=== PATIENT | female | born 1970 | race Caucasian/White ===

== ENCOUNTER 2020-09-11 19:44 | Emergency (ER) | payer MEDICARE, MEDICAID ==
[~2020-09-11] VITALS: Ht 162.6 cm; Wt 68.5 kg
[2020-09-11 19:50] VITALS: BP 141/88
[2020-09-11] MEDS ORDERED: LORazepam 2MG/ML-1ML VIAL IV ONE (20:15)
[2020-09-11 20:59] LABS: Basophils # (auto) 0.1 10 ^3/uL (0-0.2); Basophils % (auto) 0.7 % (0.0-2.0); Eosinophils # (auto) 0.1 10 ^3/uL (0-0.8); Hematocrit 40.2 % (36.0-46.0); Hemoglobin 13.7 g/dL (12.2-16.2); Lymphocytes # (auto) 1.3 10 ^3/uL (0.4-5.4); Lymphocytes % (auto) 12.5 % (10.0-50.0); Mean Corpuscular Hemoglobin 30.8 pg (28.0-32.0); Mean Corpuscular Hgb Conc. 34.1 g/dL (32.0-36.0); Mean Corpuscular Volume 90.5 fL (80.0-100.0); Monocytes # (auto) 0.5 10 ^3/uL (0-1.3); Monocytes % (auto) 4.9 % (0.0-12.0); Neutrophils # (auto) 8.6 10 ^3/uL (1.6-8.6); Neutrophils % (auto) 80.9 % (37.0-80.0); Nucleated Red Blood Cells % 0.1 %; Platelet Count (auto) 260 10^3/uL (140-450); Red Blood Cells 4.44 10^6/uL (4.0-5.20); Red Cell Distribution Width 13.6 % (11.8-14.3); White Blood Cell 10.6 10^3/uL (4.4-10.8)
[2020-09-11 21:27] LABS: Potassium 4.3 mmol/L (3.5-5.1)
[2020-09-11] MEDS ORDERED: levETIRAcetam 500 MG/5ML INJ IV ONE (21:27)
[2020-09-11 21:32] LABS: Albumin 4.1 g/dL (3.4-5.0); BUN/Creatinine Ratio 14.5; Calcium 9.4 mg/dL (8.5-10.1)
[2020-09-11 21:34] LABS: Bilirubin, Total 0.2 mg/dL (0.2-1.0); Total Protein 8.9 g/dL (6.4-8.2)
== END 2020-09-11 21:23 | disposition home or self-care (01) ==
LOC: EDBD 19:44 → ER 19:50
DX: R56.9 Unspecified convulsions (principal); F17.210 Nicotine dependence, cigarettes, uncomplicated
CPT/HCPCS: 36415; 80053; 85025; 96365; 99284; J1953; J2060; J7060